=== PATIENT | female | born 1970 | race American Indian/Alaskan Native ===

== ENCOUNTER 2018-03-25 23:48 | Inpatient (IN) | payer MEDICAID, OTHER ==
[2018-03-26 00:13] VITALS: BMI 24.5
--- NOTE | 2018-03-26 00:41 | ED PDOC ---
Arrival/HPI - General Historian: Patient EM Caveat: Acuity of Condition - History of Present Illness Time/Duration: < week Symptom Onset: Gradual Symptom Course: Unchanged Quality: Pressure, Tightness Severity Level: 4 Activities at Onset: Rest Context: Home <Concha Landaverde - Last Filed: 03/26/18 21:38> <Tarik Perez - Last Filed: 03/27/18 00:35> - General Chief Complaint: Abdominal Pain Time Seen by Provider: 03/26/18 00:37 - History of Present Illness Narrative History of Present Illness (Text): 03/26/18 00:37 Pt is a 47 yr old female with past medical history of spinal stenosis, HTN, asthma, and Lupus who complains of intractable vomiting x 3 days. Pt reports that she has body aches including her abdomen and has not been able to eat or drink since the vomiting started. Says she started to notice blood streaks in the vomit this morning and reports weakness and fatigue. Denies chest pain, shortness of breath, back pain, diarrhea, recent travel, , or any other complaints (Concha Landaverde) Past Medical History - Provider Review Nursing Documentation Reviewed: Yes - Travel History Have you recently traveled outside [place] w/in the past 3 mons?: No - Cardiac Hx Cardiac Disorders: Yes Hx Hypertension: Yes - Pulmonary Hx Respiratory Disorders: Yes Hx Asthma: Yes - Neurological Hx Neurological Disorder: No - HEENT Hx HEENT Disorder: No - Renal Hx Renal Disorder: No - Endocrine/Metabolic Hx Endocrine Disorders: Yes Hx Systemic Lupus Erythematosus: Yes - Hematological/Oncological Hx Blood Disorders: No - Integumentary Hx Dermatological Disorder: No - Musculoskeletal/Rheumatological Hx Musculoskeletal Disorders: Yes Hx Arthritis: Yes Hx Spinal Stenosis: Yes - Gastrointestinal Hx Gastrointestinal Disorders: No - Genitourinary/Gynecological Hx Genitourinary Disorders: No - Psychiatric Hx Psychophysiologic Disorder: No Hx Substance Use: No - Anesthesia Hx Anesthesia: No <Concha Landaverde - Last Filed: 03/26/18 21:38> Family/Social History - Physician Review Nursing Documentation Reviewed: Yes Family/Social History: Unknown Family HX Smoking Status: Never Smoked Hx Alcohol Use: No Hx Substance Use: No <Concha Landaverde - Last Filed: 03/26/18 21:38> Family/Social History: No Known Family HX <Tarik Perez - Last Filed: 03/27/18 00:35> Allergies/Home Meds <Concha Landaverde - Last Filed: 03/26/18 21:38> <Tarik Perez - Last Filed: 03/27/18 00:35> Allergies/Adverse Reactions: Allergies penicillin G Allergy (Verified 03/26/18 00:19) SWELLING Home Medications: Home Meds Medication Instructions Recorded Confirmed No Known Home Med 03/26/18 03/26/18 Review of Systems - Review of Systems Systems not reviewed;Unavailable: Acuity of Condition Constitutional: Fatigue, Fevers Eyes: Normal ENT: Voice Changes Cardiovascular: Normal Gastrointestinal: Abdominal Pain, Nausea, Vomiting, Appetite Changes, Hematemesis Genitourinary Female: Normal Musculoskeletal: Back Pain, Neck Pain, Joint Swelling Skin: Normal Neurological: Headache Endocrine: Diaphoresis <SaimaConcha Aldo - Last Filed: 03/26/18 21:38> Physical Exam Vital Signs Reviewed: Yes Temperature: Afebrile Blood Pressure: Hypertensive Pulse: Regular Respiratory Rate: Normal Appearance: Positive for: Ill-Appearing, Uncomfortable. No: Non-Toxic Pain Distress: Moderate Mental Status: Positive for: Alert and Oriented X 3 - Systems Exam Head: Present: Atraumatic, Normocephalic Conjunctiva: Present: Normal Mouth: Present: Moist Mucous Membranes Nose (External): Present: Atraumatic Neck: Present: Normal Range of Motion Respiratory/Chest: Present: Clear to Auscultation, Good Air Exchange. No: Respiratory Distress, Accessory Muscle Use Cardiovascular: Present: Regular Rate and Rhythm, Normal S1, S2. No: Murmurs Abdomen: Present: Tenderness (RLQ and LLQ), Rebound, Guarding, McBurney's Point Tender, Rovsing's Sign Present. No: Distention, Normal Bowel Sounds, Peritoneal Signs Back: Present: Normal Inspection. No: CVA Tenderness Upper Extremity: Present: Normal Inspection, NORMAL PULSES, Capillary Refill < 2s. No: Cyanosis, Edema Lower Extremity: Present: Normal Inspection, NORMAL PULSES, Normal ROM, Neurovascularly Intact, Capillary Refill < 2 s. No: Edema, CALF TENDERNESS, Jeffrey's Sign Neurological: Present: GCS=15, CN II-XII Intact, Speech Normal Skin: Present: Warm, Dry, Normal Color, Diaphoretic, Hot, Cold, Pale. No: Rashes Psychiatric: Present: Alert, Oriented x 3, Normal Insight, Normal Concentration <Concha Landaverde - Last Filed: 03/26/18 21:38> Vital Signs Temp Pulse Resp BP Pulse Ox 03/26/18 02:35 98 F 77 18 145/76 100 03/26/18 00:12 97.7 F 79 16 151/92 H 100 Medical Decision Making - Lab Interpretations I have reviewed the lab results: Yes (Gap of 35) Interpretation: Abnormal lab values <Concha Landaverde - Last Filed: 03/26/18 21:38> <Tarik Perez - Last Filed: 03/27/18 00:35> ED Course and Treatment: 03/26/18 00:41 Impression Pt is a 47 yr old female with past medial history of spinal stenosis, and HTN who complains of intractable vomiting x 3 days. On exam, diaphoresis, acute abdominal pain,in RLQ and LUQ and umbilical area, pt uncooperative during exam due to discomfort Plan Labs, Abd and pelvis CT Fluids Zofran and Famotidine Assess and dispo Progress Note 03/26/18 03:06 CMP reveals gap, Cl of 10, no white ct noted Dr. Perez evaluated pt at bedside; ABG ordered w lactate and Bicarb 50 mEq STAT for Gap of 35; NS 1Litre bolus given CT results pending Pt was endorsed to Dr Perez (Concha Landaverde) 03/26/18 03:21 I discussed case with surgical technologist , who will come to evaluate the patient in Emergency department. CT scans still pending. 03/26/18 04:18 Notified and discussed case with medical appliance maker. notified and accepts patient to the hospitalist service. 03/26/18 05:34 EKG shows NSR at 68 BPM with first degree AV block. No acute changes. Interpreted by me. (Tarik Perez) - Lab Interpretations Lab Results: 03/26/18 01:09 03/26/18 01:09 Lab Results 03/26/18 02:50: pCO2 26 L, pO2 112.0 H, HCO3 10.2 L, ABG pH 7.20 L, ABG Total CO2 11.0 L, ABG O2 Saturation 98.9 H, ABG Base Excess -16.2 L, ABG Potassium 4.2 , Glucose 122 H, Lactate 0.7, FiO2 21.0, Sodium 137.0, Chloride 110.0 H, Arterial Blood Potassium 4.2 03/26/18 01:31: POC Glucose (mg/dL) 119 H 03/26/18 01:09: Amylase 136 H, Lipase 55 03/26/18 01:09: Sodium 146, Potassium 4.5, Chloride 106, Carbon Dioxide 10 L, Anion Gap 35 H, BUN 6 L, Creatinine 0.6 L, Est GFR ( Amer) > 60, Est GFR (Non-Af Amer) > 60, Random Glucose 138 H, Calcium 10.9 H, Total Bilirubin 0.6, AST 54 H, ALT 73 H, Alkaline Phosphatase 91, Total Protein 10.5 H, Albumin 5.8 H , Globulin 4.7, Albumin/Globulin Ratio 1.2 03/26/18 01:09: Urine Color Light red, Urine Appearance Sl cloudy, Urine pH 6.0 , Ur Specific Essie >= 1.030, Urine Protein 100 H, Urine Glucose (UA) Negative , Urine Ketones >=80, Urine Blood Large H, Urine Nitrate Negative, Urine Bilirubin Negative, Urine Urobilinogen 0.2, Ur Leukocyte Esterase Negative, Urine RBC 20 - 25, Urine WBC 0 - 2, Ur Epithelial Cells 0 - 2 03/26/18 01:09: WBC 6.4, RBC 4.48, Hgb 11.8 L, Hct 36.6, MCV 81.7, MCH 26.3, MCHC 32.2, RDW 18.4 H, Plt Count 629 H, MPV 8.8, Gran % 76.0 H, Lymph % (Auto) 16.7 L, [place] % (Auto) 6.5 H, Eos % (Auto) 0.2 L, Baso % (Auto) 0.6, Gran # 4.83 , Lymph # (Auto) 1.1 L, [place] # (Auto) 0.4, Eos # (Auto) 0.0, Baso # (Auto) 0.04 - RAD Interpretation Radiology Orders: 03/26/18 00:46 ABDOMEN & PELVIS [ABD & PELVIS IV CONTRAST ONLY] [CT] Stat - Medication Orders Current Medication Orders: Acetaminophen (Tylenol 325mg Tab) 650 mg PO Q4H PRN PRN Reason: Headache Amlodipine Besylate (Norvasc) 5 mg PO DAILY [facility] Last Admin: 03/26/18 11:57 Dose: 5 mg MAR Pulse and Blood Pressure Document 03/26/18 11:57 RDS (Rec: 03/26/18 11:57 RDS [id number]) Pulse Pulse Rate (60-90) 78 Blood Pressure Blood Pressure (100/60-150/90) 145/79 Clonidine HCl (Catapres) 0.1 mg PO Q6H PRN PRN Reason: Symptoms of alcohol withdrawl Heparin Sodium (Porcine) (Heparin) 5,000 units SC Q8 [place]DNEY PRN Reason: Protocol Last Admin: 03/26/18 21:17 Dose: 5,000 units Subcutaneous Administrations Document 03/26/18 21:17 SSE (Rec: 03/26/18 21:18 SSE [id number]) Injection Site MAR Injection Site Right Abdomen Charges for Administration # of Subcutaneous Administrations 1 Sodium Bicarbonate 50 meq/ (Sodium Chloride) 1,050 mls @ 100 mls/hr IV .[id number] [facility] Last Admin: 03/26/18 14:18 Dose: 100 mls/hr eMAR Start Stop Document 03/26/18 14:18 RDS (Rec: 03/26/18 14:18 RDS [id number]) Intravenous Solution Start Date 03/26/18 Start Time 14:18 Aztreonam (Azactam 1 Gm) 100 mls @ 100 mls/hr IVPB Q8 [facility] PRN Reason: Protocol Stop: 04/02/18 14:01 Last Admin: 03/26/18 21:18 Dose: 100 mls/hr eMAR Start Stop Document 03/26/18 21:18 SSE (Rec: 03/26/18 21:19 SSE [id number]) Intravenous Solution Start Date 03/26/18 Start Time 21:18 Metronidazole (Flagyl) 500 mg in 100 mls @ 100 mls/hr IVPB Q8 [facility] PRN Reason: Protocol Last Admin: 03/26/18 21:19 Dose: 100 mls/hr eMAR Start Stop Document 03/26/18 21:19 SSE (Rec: 03/26/18 21:19 SSE [id number]) Intravenous Solution Start Date 05/08/18 Start Time 21:19 Sodium Chloride (Sodium Chloride 0.9%) 1,000 mls @ 30 mls/hr IV .Q24H [facility] Last Admin: 03/26/18 23:21 Dose: 30 mls/hr eMAR Start Stop Document 03/26/18 23:21 SSE (Rec: 03/26/18 23:22 SSE [id number]) Intravenous Solution Start Date 03/26/18 Start Time 23:22 Lorazepam (Ativan) 2 mg IVP Q3H PRN; Protocol PRN Reason: Symptoms of alcohol withdrawl Lorazepam (Ativan) 1 mg IVP Q6H [place]ODNEY PRN Reason: Protocol Last Admin: 03/26/18 23:12 Dose: 1 mg IVP Administration Document 03/26/18 23:12 SSE (Rec: 03/26/18 23:13 SSE [place] [id number]) Charges for Administration # of IVP Administrations 1 Behavioural Document 03/26/18 23:12 SSE (Rec: 03/26/18 23:13 SSE [place] [id number]) Maintenance Maintenance Dose Yes Nonmedicinal Nonmedicinal Interventions Redirect Ondansetron HCl (Zofran Inj) 4 mg IVP Q4H PRN PRN Reason: Nausea/Vomiting Pantoprazole Sodium (Protonix Inj) 40 mg IVP Q12 [facility] Last Admin: 03/26/18 21:18 Dose: 40 mg IVP Administration Document 03/26/18 21:18 SSE (Rec: 03/26/18 21:18 SSE [place] [id number]) Charges for Administration # of IVP Administrations 1 Discontinued Medications Acetaminophen (Tylenol 325mg Tab) 650 mg PO ONCE ONE Stop: 03/26/18 10:54 Last Admin: 03/26/18 11:58 Dose: 650 mg [facility] Pain/Vitals Document 03/26/18 11:58 RDS (Rec: 03/26/18 11:58 RDS [id number]) Presence of Pain Presence of Pain Yes Pain Scale Used Pain Scale Used Numeric Location Pain Location Body Manager Security Intensity 3 Re-Assess: GOLDY Pain/Vitals Document 03/26/18 12:58 RDS (Rec: 03/26/18 14:38 RDS [id number]) Pain Reassessment Is This A Pain ReAssessment? Yes Sleep Is patient sleeping during reassessment? Yes Sodium Chloride (Sodium Chloride 0.9%) 1,000 mls @ 999 mls/hr IV .Q1H1M STA Stop: 03/26/18 01:44 Last Admin: 03/26/18 01:20 Dose: 999 mls/hr eMAR Start Stop Document 03/26/18 01:20 LA (Rec: 03/26/18 01:21 LA [id number]) Intravenous Solution Start Date 03/26/18 Start Time 01:20 End Date 03/26/18 End time 02:21 Total Infusion Time 61 Famotidine (Pepcid 20mg/50ml Premix) 20 mg in 50 mls @ 100 mls/hr IVPB STAT STA Stop: 03/26/18 01:18 Last Admin: 03/26/18 01:17 Dose: 100 mls/hr eMAR Start Stop Document 03/26/18 01:17 LA (Rec: 03/26/18 01:18 LA [id number]) Intravenous Solution Start Date 03/26/18 Start Time 01:17 End Date 03/26/18 End time 01:47 Total Infusion Time 30 Sodium Chloride (Sodium Chloride 0.9%) 1,000 mls @ 999 mls/hr IV .Q1H1M STA Stop: 03/26/18 03:35 Last Admin: 03/26/18 05:57 Dose: Aztreonam (Azactam 1 Gm) 100 mls @ 100 mls/hr IVPB STAT STA PRN Reason: Protocol Stop: 03/26/18 05:15 Last Admin: 03/26/18 05:53 Dose: 100 mls/hr eMAR Start Stop Document 03/26/18 05:53 GC (Rec: 03/26/18 05:53 GC [id number]) Intravenous Solution Start Date 03/26/18 Start Time 05:53 Sodium Chloride (Sodium Chloride 0.9%) 1,000 mls @ 999 mls/hr IV .Q1H1M ONE Stop: 03/26/18 06:30 Last Admin: 03/26/18 05:57 Dose: Sodium Chloride (Sodium Chloride 0.9%) 1,000 mls @ 150 mls/hr IV .Q6H40M [facility] Last Admin: 03/26/18 18:35 Dose: Lorazepam (Ativan) 0.5 mg IVP Q6H PRN; Protocol PRN Reason: Seizure activity Lorazepam (Ativan) 0.5 mg IVP Q6H PRN; Protocol PRN Reason: Symptoms of alcohol withdrawl Last Admin: 03/26/18 10:13 Dose: 0.5 mg IVP Administration Document 03/26/18 10:13 RDS (Rec: 03/26/18 10:13 RDS [id number]) Charges for Administration # of IVP Administrations 1 Behavioural Document 03/26/18 10:13 RDS (Rec: 03/26/18 10:13 [place] [id number]) Maintenance Maintenance Dose No Nonmedicinal Nonmedicinal Interventions Therapeutic Communication Behavior Behavior for Medication: Anxiety Re-Assess: Reassess Psych Meds Document 03/26/18 10:43 RDS (Rec: 03/26/18 11:48 RDS [place] [id number]) Reassess Psych Med Effective Magnesium Oxide (Mag-Ox) 400 mg PO ONCE ONE Stop: 03/26/18 09:11 Last Admin: 03/26/18 09:29 Dose: 400 mg Ondansetron HCl (Zofran Inj) 4 mg IVP STAT STA Stop: 03/26/18 00:44 Last Admin: 03/26/18 01:18 Dose: 4 mg IVP Administration Document 03/26/18 01:18 LA (Rec: 03/26/18 01:18 LA [id number]) Charges for Administration # of IVP Administrations 1 Ondansetron HCl (Zofran Inj) 4 mg IVP Q6H PRN PRN Reason: Nausea/Vomiting Last Admin: 03/26/18 07:31 Dose: 4 mg IVP Administration Document 03/26/18 07:31 GC (Rec: 03/26/18 07:32 GC [place] [id number]) Charges for Administration # of IVP Administrations 1 Sodium Bicarbonate (Sodium Bicarbonate 8.4% (50 Meq) Syringe) 50 meq IVP ONCE ONE Stop: 03/26/18 03:18 Last Admin: 03/26/18 04:20 Dose: 50 meq IVP Administration Document 03/26/18 04:20 IT (Rec: 03/26/18 04:20 IT [id number]) Charges for Administration # of IVP Administrations 1 - PA / DIRECTOR MUSIC / Resident Statement / has reviewed & agrees with the documentation as recorded. / has examined the patient and agrees with the treatment plan. <Tarik Perez - Last Filed: 03/27/18 00:35> Disposition/Present on Arrival - Present on Arrival Any Indicators Present on Arrival: No History of DVT/PE: No History of Uncontrolled Diabetes: No Urinary Catheter: No History of Decub. Ulcer: No History Surgical Site Infection Following: None - Disposition Have Diagnosis and Disposition been Completed?: Yes <Concha Landaverde - Last Filed: 03/26/18 21:38> - Present on Arrival Any Indicators Present on Arrival: No History of DVT/PE: No History of Uncontrolled Diabetes: No Urinary Catheter: No History of Decub. Ulcer: No History Surgical Site Infection Following: None - Disposition Have Diagnosis and Disposition been Completed?: Yes Disposition Time: 04:24 Patient Plan: Admission <Tarik Perez - Last Filed: 03/27/18 00:35> - Disposition Diagnosis: Intractable vomiting, Enteritis, Colitis, Metabolic acidosis Disposition: HOSPITALIZED Patient Problems: Current Active Problems Problem Status Onset Colitis Acute Enteritis Acute Intractable vomiting Acute Metabolic acidosis Acute Condition: STABLE
[2018-03-26] MEDS ORDERED: Sodium Chloride 0.9% 1,000 ML IV STA ×2 (00:44→02:35)
[2018-03-26] MEDS ORDERED: Famotidine 20mg/50ml 20 MG/50 ML BAG IVPB STA (00:49)
[2018-03-26] MEDS ORDERED: Iohexol 350 MG/100 ML VIAL ONE (01:04)
[2018-03-26 01:26] LABS: BASO # 0.04 K/mm3 (0.0-2.0); BASO % 0.6 % (0.0-3.0); EOS % 0.2 % (1.5-5.0); GRAN # 4.83 (1.4-6.5); HEMOGLOBIN 11.8 g/dL (12.0-16.0); LYMPH # 1.1 (1.2-3.4); LYMPH % 16.7 % (22.0-35.0); MEAN CELL VOLUME 81.7 fl (80.0-105.0); MEAN CORPUSCULAR HEMOGLOBIN 26.3 pg (25.0-35.0); MEAN CORPUSCULAR HGB CONC 32.2 g/dl (31.0-37.0); MEAN PLATELET VOLUME 8.8 fl (7.0-11.0); MONO # 0.4 (0.1-0.6); MONO % 6.5 % (1.0-6.0); RBC 4.48 10^6/uL (3.5-6.1); RED CELL DISTRIBUTION WIDTH 18.4 % (11.5-14.5); URINE APPEARANCE SL CLOUDY (CLEAR); URINE BILIRUBIN NEGATIVE (NEGATIVE); URINE BLOOD LARGE (NEGATIVE); URINE COLOR LIGHT RED (YELLOW); URINE GLUCOSE (UA) NEGATIVE (NEGATIVE); URINE LEUKOCYTE ESTERASE NEGATIVE Leu/uL (NEGATIVE); URINE PROTEIN 100 mg/dL (<30 mg/dL); URINE UROBILINOGEN 0.2 E.U./dL (<1 E.U./dL); WHITE BLOOD COUNT 6.4 10^3/ul (4.5-11.0)
[2018-03-26 01:33] LABS: ALB/GLOB RATIO 1.2 (1.1-1.8); ALBUMIN 5.8 g/dL (3.0-4.8); ALT/SGPT 73 U/L (7-56); AST/SGOT 54 U/L (14-36); BLOOD UREA NITROGEN 6 mg/dL (7-21); CALCIUM 10.9 mg/dL (8.4-10.5); GFR AFRICAN-AMERICAN > 60; GFR NON-AFRICAN AMERICAN > 60
[2018-03-26 01:38] LABS: URINE EPITHELIAL CELLS 0 - 2 /hpf (0-5); URINE RBC 20 - 25 /hpf (0-2); URINE WBC 0 - 2 /hpf (0-6)
[2018-03-26 02:57] LABS: ARTERIAL BLOOD GAS HCO3 10.2 mmol/L (21-28); ARTERIAL BLOOD GAS O2 SAT 98.9 % (95-98); ARTERIAL BLOOD GAS PCO2 26 mm/Hg (35-45)
[2018-03-26] MEDS ORDERED: Sodium Bicarbonate (8.4%) 50 Meq Syringe IVP ONE (03:17)
[2018-03-26] MEDS ORDERED: Aztreonam 1 Gm in NS 100mL 100 ML IVPB STA (04:16)
[2018-03-26 04:25] LABS: AMYLASE 136 U/L (35-125); LIPASE 55 U/L (23-300)
--- NOTE | 2018-03-26 05:19 | CP.PCM.HP ---
<Reid Jane - Last Filed: 03/26/18 05:58> History of Present Illness - History of Present Illness History of Present Illness: CC: Abdominal Pain HPI: Patient is a 47 year old female with past medical history of spinal stenosis, asthma, HTN who presents with intractable nausea and vomiting for the past three days. Patient indicates poor oral intake and inability to tolerate food or liquids during this time. Patient reports prior to onset of symptoms she consumed chicken at a BBQ. She denies knowing if anyone else from meal is sick. She reports nausea and vomiting with some blood streaks present but denies juan hemeatemesis or clots in emesis. Patient reports diarrhea for the past 48 hours, indicateing soft stool with 5+ episodes each day. She reports feeling clammy, chills, sweats. Patient denies fever, chest pain, back pain, diarrhea, recent travel or sick contacts. ED course: VBG showing metabolic acidosis, one amp of bicarbonate, IV antibiotics, Abominal CT showing few prominent loops of small bowel with mild thickening of francisco enteritis vs. colitis, zofran and 2 Liters of fluids PMH: Spinal stenosis, asthma, HTN, Lupus PSH: Hernia repair x3 FMH: Cancer, Leukemia SOCHX: Tobacco: 0.5 PPD, ETOH: Social <10 beers a week, ID: [id number] denies IVDA ALL: PCN - hives MEDS: - Plaquenil - Percocet - Naproxen - Flexeril - Norvasc PMD: Dr. Bradley ([place]) Pharmacy: [facility] Present on Admission - Present on Admission Any Indicators Present on Admission: No Review of Systems - Review of Systems All systems: reviewed and no additional remarkable complaints except (as mentioned in HPI) Past Patient History - Past Social History Smoking Status: Current Some Days Smoker Alcohol: Social Drugs: Cannabis - CARDIAC Hx Cardiac Disorders: Yes Hx Hypertension: Yes - PULMONARY Hx Respiratory Disorders: Yes Hx Asthma: Yes - NEUROLOGICAL Hx Neurological Disorder: No - HEENT Hx HEENT Problems: No - RENAL Hx Chronic Kidney Disease: No - ENDOCRINE/METABOLIC Hx Endocrine Disorders: Yes Hx Systemic Lupus Erythematosus: Yes - HEMATOLOGICAL/ONCOLOGICAL Hx Blood Disorders: No - INTEGUMENTARY Hx Dermatological Problems: No - MUSCULOSKELETAL/RHEUMATOLOGICAL Hx Musculoskeletal Disorders: Yes Hx Arthritis: Yes Hx Spinal Stenosis: Yes - GASTROINTESTINAL Hx Gastrointestinal Disorders: No - GENITOURINARY/GYNECOLOGICAL Hx Genitourinary Disorders: No - PSYCHIATRIC Hx Psychophysiologic Disorder: No Hx Substance Use: No - SURGICAL HISTORY Hx Surgeries: Yes Hx Herniorrhaphy: Yes - ANESTHESIA Hx Anesthesia: No Meds Allergies/Adverse Reactions: Allergies Allergy/AdvReac Type Severity Reaction Status Date / Time penicillin G Allergy SWELLING Verified 03/26/18 00:19 Physical Exam - Constitutional Appears: In Acute Distress - Head Exam Head Exam: ATRAUMATIC, NORMAL INSPECTION, NORMOCEPHALIC Additional comments: Brightly dyed red hair that is actively staining bed sheets - Eye Exam Eye Exam: EOMI, PERRL Additional comments: conjunctival pallor - ENT Exam ENT Exam: Mucous Membranes Dry - Respiratory Exam Respiratory Exam: Clear to Auscultation Bilateral, NORMAL BREATHING PATTERN. absent: Wheezes, Stridor - Cardiovascular Exam Cardiovascular Exam: REGULAR RHYTHM, +S1, +S2 - GI/Abdominal Exam GI & Abdominal Exam: Diminished Bowel Sounds, Distended, Soft, Tenderness (RLQ, mid epigastric ). absent: Firm, Guarding, Rigid - Extremities Exam Extremities exam: Positive for: normal capillary refill. Negative for: joint swelling, pedal edema - Neurological Exam Neurological exam: Alert, Normal Gait, Oriented x3 - Psychiatric Exam Psychiatric exam: Normal Affect, Normal Mood - Skin Skin Exam: Dry, Warm Results - Vital Signs Recent Vital Signs: Last Vital Signs Temp 98 F 03/26/18 02:35 Pulse 77 03/26/18 02:35 Resp 18 03/26/18 02:35 BP 145/76 03/26/18 02:35 Pulse Ox 100 03/26/18 02:35 - Labs Result Diagrams: 03/26/18 01:09 03/26/18 01:09 Labs: Laboratory Results - last 24 hr 03/26/18 03/26/18 03/26/18 01:09 01:09 01:09 WBC 6.4 RBC 4.48 Hgb 11.8 L Hct 36.6 MCV 81.7 MCH 26.3 MCHC 32.2 RDW 18.4 H Plt Count 629 H MPV 8.8 Gran % 76.0 H Lymph % (Auto) 16.7 L [place] % (Auto) 6.5 H Eos % (Auto) 0.2 L Baso % (Auto) 0.6 Gran # 4.83 Lymph # (Auto) 1.1 L [place] # (Auto) 0.4 Eos # (Auto) 0.0 Baso # (Auto) 0.04 pCO2 pO2 HCO3 ABG pH ABG Total CO2 ABG O2 Saturation ABG Base Excess ABG Potassium Glucose Lactate FiO2 Sodium 146 Potassium 4.5 Chloride 106 Carbon Dioxide 10 L Anion Gap 35 H BUN 6 L Creatinine 0.6 L Est GFR ( Amer) > 60 Est GFR (Non-Af Amer) > 60 Random Glucose 138 H Calcium 10.9 H Total Bilirubin 0.6 AST 54 H ALT 73 H Alkaline Phosphatase 91 Total Protein 10.5 H Albumin 5.8 H Globulin 4.7 Albumin/Globulin Ratio 1.2 Amylase Lipase Arterial Blood Potassium Urine Color Light red Urine Appearance Sl cloudy Urine pH 6.0 Ur Specific [place] >= 1.030 Urine Protein 100 H Urine Glucose (UA) Negative Urine Ketones >=80 Urine Blood Large H Urine Nitrate Negative Urine Bilirubin Negative Urine Urobilinogen 0.2 Ur Leukocyte Esterase Negative Urine RBC 20 - 25 Urine WBC 0 - 2 Ur Epithelial Cells 0 - 2 03/26/18 03/26/18 01:09 02:50 WBC RBC Hgb Hct MCV MCH MCHC RDW Plt Count MPV Gran % Lymph % (Auto) [place] % (Auto) Eos % (Auto) Baso % (Auto) Gran # Lymph # (Auto) [place] # (Auto) Eos # (Auto) Baso # (Auto) pCO2 26 L pO2 112.0 H HCO3 10.2 L ABG pH 7.20 L ABG Total CO2 11.0 L ABG O2 Saturation 98.9 H ABG Base Excess -16.2 L ABG Potassium 4.2 Glucose 122 H Lactate 0.7 FiO2 21.0 Sodium 137.0 Potassium Chloride 110.0 H Carbon Dioxide Anion Gap BUN Creatinine Est GFR ( Amer) Est GFR (Non-Af Amer) Random Glucose Calcium Total Bilirubin AST ALT Alkaline Phosphatase Total Protein Albumin Globulin Albumin/Globulin Ratio Amylase 136 H Lipase 55 Arterial Blood Potassium 4.2 Urine Color Urine Appearance Urine pH Ur Specific [place] Urine Protein Urine Glucose (UA) Urine Ketones Urine Blood Urine Nitrate Urine Bilirubin Urine Urobilinogen Ur Leukocyte Esterase Urine RBC Urine WBC Ur Epithelial Cells Assessment & Plan - Assessment and Plan (Free Text) Assessment: 47 year old female with past medical history of spinal stenosis, asthma, HTN who presents with intractable nausea and vomiting for the past three days. Abdominal CT shows enteritis v. colitis and metabolic acidosis with elevated anion gap. Patient likely to have gastroenteritis secondary to metabolic acidosis. Patient to be admitted for further management and evaluation Plan: AG metabolic Acidosis - Intractable n/v past 3 days, Etiology: Dehydration, enteritis, gastroenteritits, colitis, other - Check Aceteminophen, ETOH, salicylate, UDS - Repeat CMP, CBC in AM - 2 Liters of fluid give in ED, plan for 3rd bolus, start IVF 150mL/Hr after third bolus - 1 amp Sodium Bicarb given - Monitor Gastroenteritis vs. Colitis - Abd CT showing: Few prominent loops of small bowel with mildly thickened francisco in the left abdomen, nonspecific but seen with enteritis, mild thickening of the wall of the colon most likely secondary to tunderdistention, superimposed colitis is not entirely excluded, uterine fibroid measuring 3.3 x 2.8 x 2.4 cm - Aztreonam, Flagyl - Zofran for nausea - NPO HTN - stable - consider restarting Norvasc 2.5mg from home DVT ppx: Heparin GI ppx: Protonix Case and plan discussed with attending, Dr. Fernandez - Date & Time Date: 03/26/18 Time: 05:35 <Garrett Fernandez - Last Filed: 03/26/18 06:54> Results - Vital Signs Recent Vital Signs: Last Vital Signs Temp 98.7 F 03/26/18 06:01 Pulse 70 03/26/18 06:01 Resp 18 03/26/18 06:01 BP 152/84 H 03/26/18 06:01 Pulse Ox 100 03/26/18 02:35 - Labs Result Diagrams: 03/26/18 01:09 03/26/18 01:09 Attending/Attestation - Attestation I have personally seen and examined this patient.: Yes I have fully participated in the care of the patient.: Yes I have reviewed all pertinent clinical information: Yes Notes (Text): 03/26/18 06:52 I agree with the above mentioned note and exam by the resident with the addition /exception of the followin47 y/o female with htn, asthma, SLE presented to the ED with the c/o intractable nausea/vomiting x 3 days along with loose watery bowel movements after eating BBQ chicken. Patient states having multiple episodes of NBNB vomitus followed by vomiting up saliva and clear liquid. Found to have an increased AG metabolic acidosis; treated with 3L of IVF bolus' + 1AMP Sodium Bicarb along with a bicarb drip started in the ED. Will repeat chemistry to evaluate whether AG is the same or decreasing; will also rule out other causes with tylenol/etoh/salicylate levels.
[2018-03-26] MEDS ORDERED: Sodium Chloride 0.9% 1,000 ML IV ONE (05:30)
[2018-03-26] MEDS: Sodium Chloride 0.9% 1,000 ML IV SCH ×4 (05:58→18:35)
[2018-03-26] MEDS: metroNIDAZOLE IV 500 mg/100 ml 500 MG/100 ML BAG IVPB SCH ×3 (07:59→21:19)
[2018-03-26] MEDS ORDERED: metroNIDAZOLE IV 250mg/50 ml 250 MG/50 ML BAG IVPB SCH (08:00)
[2018-03-26 08:31] LABS: BASO # 0.01 K/mm3 (0.0-2.0); BASO % 0.2 % (0.0-3.0); GRAN # 5.71 (1.4-6.5); GRAN % 86.1 % (50.0-68.0); HEMOGLOBIN 9.7 g/dL (12.0-16.0); LYMPH # 0.7 (1.2-3.4); LYMPH % 10.1 % (22.0-35.0); MEAN CELL VOLUME 81.2 fl (80.0-105.0); MEAN CORPUSCULAR HEMOGLOBIN 25.7 pg (25.0-35.0); MEAN CORPUSCULAR HGB CONC 31.7 g/dl (31.0-37.0); MEAN PLATELET VOLUME 8.7 fl (7.0-11.0); MONO # 0.2 (0.1-0.6); MONO % 3.6 % (1.0-6.0); RBC 3.77 10^6/uL (3.5-6.1); RED CELL DISTRIBUTION WIDTH 18.2 % (11.5-14.5); WHITE BLOOD COUNT 6.6 10^3/ul (4.5-11.0)
[2018-03-26 08:43] LABS: ACETAMINOPHEN < 10.0 ug/ml (10.0-20.0); SALICYLATE < 1 mg/dL (2.0-20.0)
[2018-03-26 08:45] LABS: ALB/GLOB RATIO 1.6 (1.1-1.8); ALT/SGPT 53 U/L (7-56); AST/SGOT 44 U/L (14-36); BLOOD UREA NITROGEN 4 mg/dL (7-21); CALCIUM 9.1 mg/dL (8.4-10.5); GFR AFRICAN-AMERICAN > 60; GFR NON-AFRICAN AMERICAN > 60
[2018-03-26] MEDS ORDERED: Magnesium Oxide 400 mg Tab UD PO ONE (09:10)
--- NOTE | 2018-03-26 09:15 | CT ---
PROCEDURE: CT scan abdomen pelvis dated 03/26/2018 HISTORY: Right lower quadrant pain COMPARISON: No prior study available for comparison TECHNIQUE: Contrast dose: 96 cc Omnipaque 350 contrast material. Radiation dose: Total exam DLP = 247.48 mGy-cm. This CT exam was performed using one or more of the following dose reduction techniques: Automated exposure control, adjustment of the mA and/or kV according to patient size, and/or use of iterative reconstruction technique. . FINDINGS: LOWER THORAX: Lung bases are clear. No infiltrate effusion or basilar pneumothorax. Small to medium-sized hiatal hernia. Heart is enlarged. LIVER: Liver exhibits normal size. Moderate fatty hepatic infiltration. . There is a tiny approximately 5.3 mm elliptical shaped focus low attenuation left lobe liver that is too small to characterize though could represent a tiny hemangioma GALLBLADDER AND BILE DUCTS: Gallbladder is appears incompletely distended. . No evidence of intraluminal gallbladder calculi. PANCREAS: Unremarkable. No gross lesion or ductal dilatation. SPLEEN: Unremarkable. ADRENALS: No adrenal lesions. KIDNEYS AND URETERS: Kidneys demonstrate symmetric nephrograms. No evidence of nephrolithiasis or hydronephrosis. . There is a tiny approximately 2.5 mm elliptical shaped low-attenuation focus anterolateral cortex mid to lower pole right kidney that is too small to characterize however could represent tiny cyst. VASCULATURE: Unremarkable. No abdominal aortic the aneurysm. BOWEL: Evaluation of the bowel is limited due to the lack of oral contrast material. The stomach is incompletely distended CTS stomach is incompletely distended. Visualized loops of small bowel exhibit relatively normal contour and caliber. No evidence of acute mechanical small bowel obstruction. There are several on minimally prominent thickened loops of small bowel slightly thickened loops of small bowel in the left abdomen ; rule out enteritis. Most of the cecum, ascending and transverse colon is collapsed which may in part account for slight wall thickening however the possibility of a submucosal edema due to of colitis or submucosal fat deposition at to be excluded occluded. Clinical correlation recommended. APPENDIX: Normal-appearing appendix best seen on coronal image number [id number]. No periappendiceal inflammatory changes. The disease PERITONEUM: Unremarkable. No free fluid. No free air. LYMPH NODES: Unremarkable. No enlarged lymph nodes. BLADDER: Urinary bladder is incompletely distended which in part accounts for slight thick-walled appearance. Correlation with urinalysis recommended to exclude the possibility of a cystitis. REPRODUCTIVE: There is an apparent of posterior uterine body fibroid 2.7 x 2.7 cm . Follow-up pelvic ultrasound could confirm. BONES: The osseous structures appear grossly intact. OTHER FINDINGS: None. IMPRESSION: There are a few prominent mildly thick-walled loops the cecum of small bowel left abdomen ; rule out enteritis. . The cecum ascending and transverse colon are collapsed which may in part account for slight apparent wall thickening however submucosal edema due to a colitis or submucosal fat deposition due to chronic inflammation not excluded. Clinical correlation recommended. Uterine fibroid. Fatty hepatic infiltration. There appears to be a small 5.3 mm low-attenuation focus left lobe liver too small to characterize. There is also a tiny 2.5 mm focus low attenuation right kidney that could represent cyst. Followup study at interval could be performed to assess stability. See above discussion for additional details findings and recommendations.
--- NOTE | 2018-03-26 10:32 | CARD ---
APPROVED REPORT EKG Measurement Heart [id number] HI [id number] [id number] <Conclusion> Sinus rhythm with 1st degree AV block Peaked T waves V 4 - 6
--- NOTE | 2018-03-26 11:31 | CP.PCM.PN ---
<Chantel Henley - Last Filed: 03/26/18 11:28> Subjective - Date & Time of Evaluation Date of Evaluation: 03/26/18 Time of Evaluation: 11:28 - Subjective Subjective: IM progress note for Dr. Mays-Chantel Henley, PGY-1 Pt S & E at bedside at 0740 and again at approximately 11am Pt reports emesis (bilious), nausea, and headache at later visit. Also reports RLQ abdominal pain, epigastric abdominal pain and L flank pain, dysuria. Pt reports having similar episode a few years ago- does not remember what medications helped at that time. Objective - Vital Signs/Intake and Output Vital Signs (last 24 hours): Temp Pulse Resp BP Pulse Ox 98.7 F 76 18 152/84 H 99 03/26/18 06:01 03/26/18 10:00 03/26/18 06:01 03/26/18 06:01 03/26/18 05:20 - Medications Medications: Current Medications Amlodipine Besylate (Norvasc) 5 mg PO DAILY [facility] Clonidine HCl (Catapres) 0.1 mg PO Q6H PRN PRN Reason: Symptoms of alcohol withdrawl Heparin Sodium (Porcine) (Heparin) 5,000 units SC Q8 [facility] PRN Reason: Protocol Last Admin: 03/26/18 05:58 Dose: Not Given Sodium Bicarbonate 50 meq/ (Sodium Chloride) 1,050 mls @ 100 mls/hr IV .[id number] [facility] Last Admin: 03/26/18 03:17 Dose: 100 mls/hr Sodium Chloride (Sodium Chloride 0.9%) 1,000 mls @ 150 mls/hr IV .[id number] [facility] Last Admin: 03/26/18 05:58 Dose: 150 mls/hr Aztreonam (Azactam 1 Gm) 100 mls @ 100 mls/hr IVPB Q8 [facility] PRN Reason: Protocol Stop: 04/02/18 14:01 Metronidazole (Flagyl) 500 mg in 100 mls @ 100 mls/hr IVPB Q8 [facility] PRN Reason: Protocol Last Admin: 03/26/18 07:59 Dose: 100 mls/hr Lorazepam (Ativan) 2 mg IVP Q3H PRN; Protocol PRN Reason: Symptoms of alcohol withdrawl Lorazepam (Ativan) 1 mg IVP Q6H [facility] PRN Reason: Protocol Ondansetron HCl (Zofran Inj) 4 mg IVP Q4H PRN PRN Reason: Nausea/Vomiting Pantoprazole Sodium (Protonix Inj) 40 mg IVP Q12 [facility] Last Admin: 03/26/18 09:29 Dose: 40 mg - Labs Labs: 03/26/18 08:00 03/26/18 08:00 - Constitutional Appears: Non-toxic, No Acute Distress - Head Exam Head Exam: ATRAUMATIC, NORMAL INSPECTION, NORMOCEPHALIC - Eye Exam Eye Exam: EOMI, Normal appearance - ENT Exam ENT Exam: Mucous Membranes Moist, Normal Exam - Neck Exam Neck Exam: Full ROM, Normal Inspection - Respiratory Exam Respiratory Exam: Clear to Ausculation Bilateral, NORMAL BREATHING PATTERN. absent: Rales, Rhonchi, Wheezes, Respiratory Distress - Cardiovascular Exam Cardiovascular Exam: REGULAR RHYTHM, +S1, +S2 - GI/Abdominal Exam GI & Abdominal Exam: Soft, Tenderness (mild, RLQ, epigastric areas). absent: Distended, Firm, Guarding, Rigid - Extremities Exam Extremities Exam: Normal Inspection - Neurological Exam Neurological Exam: Alert, Awake, CN II-XII Intact, Oriented x3 - Psychiatric Exam Psychiatric exam: Normal Affect, Normal Mood - Skin Skin Exam: Dry, Intact, Normal Color, Warm Assessment and Plan - Assessment and Plan (Free Text) Assessment: 47F w/PMH sig for spinal stenosis, asthma, HTN, SLE admitted for intractable nausea and vomiting x 3 days resulting in high anion gap metabolic acidosis Plan: AG metabolic Acidosis pH 7.2 upon admission Started on bicarb drip Acetaminophen <10 -WNL ETOH <10 - WNL Salicylate <1 - WNL FU UDS FU BMP at 2pm FU A1c Montior Gastroenteritis vs. Colitis vs withdrawal Ab CT w/Few prominent loops of small bowel with mildly thickened francisco in left abdomen, nonspecific but seen with enteritis, mild thickening of the wall of the colon most likely secondary to under distention, superimposed colitis is not entirely excluded, uterine fibroid measuring 3.3 x 2.8 x 2.4 cm Cont Aztreonam Cont Flagyl Zofran PRN NPO w/ice chips & Meds NS @150 FU UDS Ativan scheduled & PRN CIWA protocol Seizure precautions Clonidine PRN ID following- FU HIV, blood cxr, stool cx, fecal leukocytes Headache Tylenol Monitor HTN BP 152/84 Monitor Cont home med- Norvasc 5mg daily History of lupus Cont plaquenil Hx gastritis Avoid NSAIDS GI/DVT ppx Heparin Protonix DW attending Lory, PGY-1 <Sandra Mays - Last Filed: 03/26/18 12:21> Objective - Vital Signs/Intake and Output Vital Signs (last 24 hours): Temp Pulse Resp BP Pulse Ox 98.7 F 78 18 145/79 99 03/26/18 06:01 03/26/18 11:57 03/26/18 06:01 03/26/18 11:57 03/26/18 05:20 - Medications Medications: Current Medications Amlodipine Besylate (Norvasc) 5 mg PO DAILY [facility] Last Admin: 03/26/18 11:57 Dose: 5 mg Clonidine HCl (Catapres) 0.1 mg PO Q6H PRN PRN Reason: Symptoms of alcohol withdrawl Heparin Sodium (Porcine) (Heparin) 5,000 units SC Q8 [facility] PRN Reason: Protocol Last Admin: 03/26/18 05:58 Dose: Not Given Sodium Bicarbonate 50 meq/ (Sodium Chloride) 1,050 mls @ 100 mls/hr IV .[id number] [facility] Last Admin: 03/26/18 03:17 Dose: 100 mls/hr Sodium Chloride (Sodium Chloride 0.9%) 1,000 mls @ 150 mls/hr IV .Q6H40M [facility] Last Admin: 03/26/18 05:58 Dose: 150 mls/hr Aztreonam (Azactam 1 Gm) 100 mls @ 100 mls/hr IVPB Q8 [facility] PRN Reason: Protocol Stop: 04/02/18 14:01 Metronidazole (Flagyl) 500 mg in 100 mls @ 100 mls/hr IVPB Q8 [facility] PRN Reason: Protocol Last Admin: 03/26/18 07:59 Dose: 100 mls/hr Lorazepam (Ativan) 2 mg IVP Q3H PRN; Protocol PRN Reason: Symptoms of alcohol withdrawl Lorazepam (Ativan) 1 mg IVP Q6H [facility] PRN Reason: Protocol Last Admin: 03/26/18 11:58 Dose: 1 mg Ondansetron HCl (Zofran Inj) 4 mg IVP Q4H PRN PRN Reason: Nausea/Vomiting Pantoprazole Sodium (Protonix Inj) 40 mg IVP Q12 [facility] Last Admin: 03/26/18 09:29 Dose: 40 mg - Labs Labs: 03/26/18 08:00 03/26/18 08:00 Attending/Attestation - Attestation I have personally seen and examined this patient.: Yes I have fully participated in the care of the patient.: Yes I have reviewed all pertinent clinical information, including history, physical exam and plan: Yes Notes (Text): 03/26/18 12:16 47 year old female with past medical history of asthma, hypertension and SLE who presented with nausea and vomiting x 3 days. She was found to have anion gap acidosis and possible enteritis on CT. She is currently on bicarb. Will obtain serial labs. Acetaminophen, alcohol and salicylate level have been negative. Urine drug screen is pending. She admits to drinking alcohol few days prior. She is started on ativan for possible early withdrawal symptoms. Continue with NPO, IVF, and antiemetics. Advance diet as symptoms improve. ID evaluation was requested and patient is currently on flagyl. Sandra Mays MD Hospitalist.
--- NOTE | 2018-03-26 12:57 | CP.PCM.CON ---
History of Present Illness - History of Present Illness History of Present Illness: 47 year old female with PMH of spinal stenosis, systemic lupus erythematosus, HTN, asthma [place] [facility] [place] of nausea and vomiting for about 2 days, ever since she ate some chicken at a barbeque cookout. She denies hematemesis. She had episodes of loose bowel movement and abdominal discomfort, but denies hematochezia or melena. She denies fever or chills, no cough or rhinorrhea, no shortness of breath, no sore throat, no chest pain, no headache or dizziness. In the ED, CT scan of the abdomen and pelvis showed enteritis, cannot rule out colitis. Infectious Diseases consult is requested to further evaluate and manage. Review of Systems - Review of Systems All systems: reviewed and no additional remarkable complaints except (as per HPI ) Past Patient History - Past Social History Smoking Status: Never Smoked - CARDIAC Hx Cardiac Disorders: Yes Hx Hypertension: Yes - PULMONARY Hx Respiratory Disorders: Yes Hx Asthma: Yes - NEUROLOGICAL Hx Neurological Disorder: No - HEENT Hx HEENT Problems: No - RENAL Hx Chronic Kidney Disease: No - ENDOCRINE/METABOLIC Hx Endocrine Disorders: Yes Hx Systemic Lupus Erythematosus: Yes - HEMATOLOGICAL/ONCOLOGICAL Hx Blood Disorders: No - INTEGUMENTARY Hx Dermatological Problems: No - MUSCULOSKELETAL/RHEUMATOLOGICAL Hx Musculoskeletal Disorders: Yes Hx Arthritis: Yes Hx Falls: No Hx Spinal Stenosis: Yes - GASTROINTESTINAL Hx Gastrointestinal Disorders: No - GENITOURINARY/GYNECOLOGICAL Hx Genitourinary Disorders: No - PSYCHIATRIC Hx Substance Use: No - SURGICAL HISTORY Hx Surgeries: Yes Hx Herniorrhaphy: Yes - ANESTHESIA Hx Anesthesia: No Meds Allergies/Adverse Reactions: Allergies Allergy/AdvReac Type Severity Reaction Status Date / Time penicillin G Allergy SWELLING Verified 03/26/18 00:19 - Medications Medications: Current Medications Heparin Sodium (Porcine) (Heparin) 5,000 units SC Q8 [facility] PRN Reason: Protocol Last Admin: 03/26/18 05:58 Dose: Not Given Sodium Bicarbonate 50 meq/ (Sodium Chloride) 1,050 mls @ 100 mls/hr IV .[id number] [facility] Last Admin: 03/26/18 03:17 Dose: 100 mls/hr Sodium Chloride (Sodium Chloride 0.9%) 1,000 mls @ 150 mls/hr IV .Q6H40M [facility] Last Admin: 05/08/18 05:58 Dose: 150 mls/hr Aztreonam (Azactam 1 Gm) 100 mls @ 100 mls/hr IVPB Q8 [facility] PRN Reason: Protocol Stop: 04/02/18 14:01 Metronidazole (Flagyl) 500 mg in 100 mls @ 100 mls/hr IVPB Q8 [facility] PRN Reason: Protocol Pantoprazole Sodium (Protonix Inj) 40 mg IVP Q12 [facility] Physical Exam - Constitutional Appears: Other (ill-appearing) - Head Exam Head Exam: NORMAL INSPECTION - ENT Exam ENT Exam: Mucous Membranes Moist - Neck Exam Neck exam: Negative for: Meningismus - Respiratory Exam Respiratory Exam: Decreased Breath Sounds. absent: Rales - Cardiovascular Exam Cardiovascular Exam: +S1, +S2 - GI/Abdominal Exam GI & Abdominal Exam: Soft, Tenderness (lower quadrants). absent: Distended, Rebound, Rigid Results - Vital Signs Recent Vital Signs: Last Vital Signs Temp 98.7 F 03/26/18 06:01 Pulse 70 03/26/18 06:01 Resp 18 03/26/18 06:01 BP 152/84 H 03/26/18 06:01 Pulse Ox 100 03/26/18 02:35 - Labs Result Diagrams: 03/26/18 08:00 03/26/18 08:00 Assessment & Plan - Assessment and Plan (Free Text) Plan: Assessment consider enterocolitis spinal stenosis systemic lupus erythematosus HTN asthma Plan Started the patient on Azactam and Flagyl and will give a dose of IV Vancomycin pending blood cx, stool cx, fecal leukocytes follow up GI evaluation will monitor clinical response
[2018-03-26] MEDS: Aztreonam 1 Gm in NS 100mL 100 ML IVPB SCH ×2 (14:24→21:18)
[2018-03-26 14:28] LABS: BARBITURATES, UR NEGATIVE (NEGATIVE); BENZODIAZEPINES, UR NEGATIVE (NEGATIVE); OPIATES, UR NEGATIVE (NEGATIVE); PHENCYCLIDINE, UR NEGATIVE (NEGATIVE)
[2018-03-26 16:11] LABS: BLOOD UREA NITROGEN 4 mg/dL (7-21); CALCIUM 9.1 mg/dL (8.4-10.5); GFR AFRICAN-AMERICAN > 60; GFR NON-AFRICAN AMERICAN > 60
[2018-03-26] MEDS ORDERED: Sodium Chloride 0.9% 1,000 ML IV SCH (21:12)
[2018-03-27] MEDS: metroNIDAZOLE IV 500 mg/100 ml 500 MG/100 ML BAG IVPB SCH ×3 (06:04→22:57)
[2018-03-27] MEDS: Aztreonam 1 Gm in NS 100mL 100 ML IVPB SCH ×2 (06:04→17:05)
[2018-03-27 06:45] LABS: HEMOGLOBIN 8.2 g/dL (12.0-16.0); MEAN CELL VOLUME 80.3 fl (80.0-105.0); MEAN CORPUSCULAR HEMOGLOBIN 25.7 pg (25.0-35.0); MEAN PLATELET VOLUME 8.9 fl (7.0-11.0); RBC 3.19 10^6/uL (3.5-6.1); RED CELL DISTRIBUTION WIDTH 18.3 % (11.5-14.5); WHITE BLOOD COUNT 5.8 10^3/ul (4.5-11.0)
[2018-03-27 07:12] LABS: ALB/GLOB RATIO 1.4 (1.1-1.8); ALBUMIN 3.7 g/dL (3.0-4.8); ALT/SGPT 43 U/L (7-56); AST/SGOT 53 U/L (14-36); BLOOD UREA NITROGEN 4 mg/dL (7-21); CALCIUM 8.6 mg/dL (8.4-10.5); GFR AFRICAN-AMERICAN > 60; GFR NON-AFRICAN AMERICAN > 60
[2018-03-27 07:39] LABS: IRON 65 ug/dL (45-180)
[2018-03-27 07:48] LABS: % IRON SATURATION 19 % (20-55); TOTAL IRON BINDING CAPACITY 345 ug/dL (265-497)
[2018-03-27] MEDS ORDERED: Potassium Chloride 20 mEq ER Tab PO ONE ×2 (09:00→14:00)
[2018-03-27] MEDS ORDERED: Potassium Chloride 20 mEq ER Tab PO STA (09:04)
--- NOTE | 2018-03-27 11:40 | CP.PCM.PN ---
Subjective - Date & Time of Evaluation Date of Evaluation: 03/27/18 Time of Evaluation: 10:05 - Subjective Subjective: Patient is less nauseated and tolerating liquid diet so far, no vomiting, no diarrhea, no fevers. No abdominal pain currently. Objective - Vital Signs/Intake and Output Vital Signs (last 24 hours): Temp Pulse Resp BP Pulse Ox 98.5 F 76 18 115/65 99 03/27/18 06:00 03/27/18 06:00 03/27/18 06:00 03/27/18 06:00 03/26/18 23:43 Intake and Output: 03/27/18 03/27/18 06:59 18:59 Intake Total 1300 0 Output Total 200 Balance 1300 -200 - Medications Medications: Current Medications Acetaminophen (Tylenol 325mg Tab) 650 mg PO Q4H PRN PRN Reason: Headache Amlodipine Besylate (Norvasc) 5 mg PO DAILY [facility] Last Admin: 03/26/18 11:57 Dose: 5 mg Clonidine HCl (Catapres) 0.1 mg PO Q6H PRN PRN Reason: Symptoms of alcohol withdrawl Heparin Sodium (Porcine) (Heparin) 5,000 units SC Q8 [facility] PRN Reason: Protocol Last Admin: 03/27/18 06:03 Dose: 5,000 units Sodium Bicarbonate 50 meq/ (Sodium Chloride) 1,050 mls @ 100 mls/hr IV .[id number] [facility] Last Admin: 03/27/18 01:33 Dose: 100 mls/hr Aztreonam (Azactam 1 Gm) 100 mls @ 100 mls/hr IVPB Q8 [facility] PRN Reason: Protocol Stop: 04/02/18 14:01 Last Admin: 03/27/18 06:04 Dose: 100 mls/hr Metronidazole (Flagyl) 500 mg in 100 mls @ 100 mls/hr IVPB Q8 [facility] PRN Reason: Protocol Last Admin: 03/27/18 06:04 Dose: 100 mls/hr Lorazepam (Ativan) 2 mg IVP Q3H PRN; Protocol PRN Reason: Symptoms of alcohol withdrawl Lorazepam (Ativan) 1 mg IVP Q6H [facility] PRN Reason: Protocol Last Admin: 03/27/18 06:03 Dose: 1 mg Ondansetron HCl (Zofran Inj) 4 mg IVP Q4H PRN PRN Reason: Nausea/Vomiting Pantoprazole Sodium (Protonix Inj) 40 mg IVP Q12 [facility] Last Admin: 03/26/18 21:18 Dose: 40 mg Potassium Chloride (K-Dur 20 Meq Er Tab) 40 meq PO ONCE ONE Stop: 03/27/18 14:01 - Labs Labs: 03/27/18 06:00 03/27/18 06:00 APTT 28.9 Seconds (25.1-36.5) 03/27/18 06:00 - Constitutional Appears: Chronically Ill - Head Exam Head Exam: NORMAL INSPECTION - ENT Exam ENT Exam: Mucous Membranes Moist - Neck Exam Neck Exam: absent: Lymphadenopathy, Meningismus - Respiratory Exam Respiratory Exam: Decreased Breath Sounds. absent: Rales - Cardiovascular Exam Cardiovascular Exam: +S1, +S2 - GI/Abdominal Exam GI & Abdominal Exam: Soft. absent: Tenderness Assessment and Plan - Assessment and Plan (Free Text) Plan: Assessment consider acute enterocolitis, slowly improving spinal stenosis systemic lupus erythematosus HTN asthma Plan continue Azactam and Flagyl day 2; blood cx are negative, follow up stool cx, fecal leukocytes monitor advancement of diet will continue to monitor clinical response
--- NOTE | 2018-03-27 12:47 | CP.PCM.PN ---
<Chantel Henley - Last Filed: 03/27/18 17:28> Subjective - Date & Time of Evaluation Date of Evaluation: 03/27/18 Time of Evaluation: 12:45 - Subjective Subjective: IM progress note for Dr. Juan Alberto Henley, PGY-1 Pt S & E at bedside at 1045 Pt reports some nausea, one episode of emesis at 1am. Otherwise tolerating liquids currently. Continues with some RLQ abdominal pain, chills & diaphoresis overnight, Headache is improved. Denies chest pain, SOB, diarrhea. Has not had a BM since admission, but also has not really eaten since before admission. Objective - Vital Signs/Intake and Output Vital Signs (last 24 hours): Temp Pulse Resp BP Pulse Ox 98.6 F 77 18 115/79 99 03/27/18 12:00 03/27/18 12:00 03/27/18 12:00 03/27/18 12:00 03/26/18 23:43 Intake and Output: 03/27/18 03/27/18 06:59 18:59 Intake Total 1300 0 Output Total 200 Balance 1300 -200 - Medications Medications: Current Medications Acetaminophen (Tylenol 325mg Tab) 650 mg PO Q4H PRN PRN Reason: Headache Amlodipine Besylate (Norvasc) 5 mg PO DAILY [facility] Last Admin: 03/27/18 10:30 Dose: 5 mg Clonidine HCl (Catapres) 0.1 mg PO Q6H PRN PRN Reason: Symptoms of alcohol withdrawl Heparin Sodium (Porcine) (Heparin) 5,000 units SC Q8 [facility] PRN Reason: Protocol Last Admin: 03/27/18 06:03 Dose: 5,000 units Sodium Bicarbonate 50 meq/ (Sodium Chloride) 1,050 mls @ 100 mls/hr IV .[id number] [facility] Last Admin: 03/27/18 10:30 Dose: 100 mls/hr Aztreonam (Azactam 1 Gm) 100 mls @ 100 mls/hr IVPB Q8 [facility] PRN Reason: Protocol Stop: 04/02/18 14:01 Last Admin: 03/27/18 06:04 Dose: 100 mls/hr Metronidazole (Flagyl) 500 mg in 100 mls @ 100 mls/hr IVPB Q8 [facility] PRN Reason: Protocol Last Admin: 03/27/18 06:04 Dose: 100 mls/hr Lorazepam (Ativan) 2 mg IVP Q3H PRN; Protocol PRN Reason: Symptoms of alcohol withdrawl Lorazepam (Ativan) 0.5 mg IVP Q6H [facility] PRN Reason: Protocol Ondansetron HCl (Zofran Inj) 4 mg IVP Q4H PRN PRN Reason: Nausea/Vomiting Last Admin: 03/27/18 10:30 Dose: 4 mg Pantoprazole Sodium (Protonix Inj) 40 mg IVP Q12 [facility] Last Admin: 03/27/18 10:30 Dose: 40 mg - Labs Labs: 03/27/18 06:00 03/27/18 06:00 APTT 28.9 Seconds (25.1-36.5) 03/27/18 06:00 - Constitutional Appears: Non-toxic, No Acute Distress - Head Exam Head Exam: ATRAUMATIC, NORMAL INSPECTION, NORMOCEPHALIC - Eye Exam Eye Exam: EOMI, Normal appearance - ENT Exam ENT Exam: Mucous Membranes Moist, Normal Exam - Neck Exam Neck Exam: Full ROM, Normal Inspection - Respiratory Exam Respiratory Exam: Clear to Ausculation Bilateral, NORMAL BREATHING PATTERN. absent: Rales, Rhonchi, Wheezes, Respiratory Distress - Cardiovascular Exam Cardiovascular Exam: REGULAR RHYTHM, +S1, +S2 - GI/Abdominal Exam GI & Abdominal Exam: Soft, Tenderness (RLQ, mild), Normal Bowel Sounds. absent : Distended, Firm, Guarding - Extremities Exam Extremities Exam: Normal Inspection - Neurological Exam Neurological Exam: Alert, Awake, CN II-XII Intact, Oriented x3 - Psychiatric Exam Psychiatric exam: Normal Affect, Normal Mood - Skin Skin Exam: Dry, Intact, Normal Color, Warm Assessment and Plan - Assessment and Plan (Free Text) Assessment: 47F w/PMH sig for spinal stenosis, asthma, HTN, SLE admitted for intractable nausea and vomiting x 3 days resulting in high anion gap metabolic acidosis - resolving Plan: AG metabolic Acidosis- resolving AG now 13 Will consider discontinuing bicarb drip Acetaminophen <10 -WNL ETOH <10 - WNL Salicylate <1 - WNL UDS pos for cannabinoids A1c 5.4- WNL Montior Gastroenteritis vs. Colitis vs withdrawal Cont Aztreonam Cont Flagyl Zofran PRN On FLD Advance diet as tolerate Cont CIWA protocol Seizure precautions Ativan dosage decreased from 1mg Q6H to 0.5mg Q6H Cont Ativan PRN Clonidine PRN ID following- Cont Azactam & Flagyl (day 2), blood neg x 24H, FU fecal leuks HIV neg Headache Tylenol Monitor HTN BP 152/84 Monitor Cont home med- Norvasc 2.5mg daily History of lupus Cont home med- plaquenil Hx gastritis Avoid NSAIDS Anemia in setting of menoorrhagia Hgb 8.2 from 9.7 FU H/H at 2pm Ferritin 20.7 Will consider Fe vs. pRBCs if required Headache Tylenol PRN Hypokalemia 3.3 Replaced Monitor GI/DVT ppx Heparin Protonix DW attending All home medications verified via [facility] Lory, PGY-1 <Sandra Mays - Last Filed: 03/27/18 17:46> Objective - Vital Signs/Intake and Output Vital Signs (last 24 hours): Temp Pulse Resp BP Pulse Ox 98.1 F 109 H 19 145/75 99 03/27/18 17:42 03/27/18 17:42 03/27/18 17:42 03/27/18 17:42 03/26/18 23:43 Intake and Output: 03/27/18 03/27/18 06:59 18:59 Intake Total 1300 0 Output Total 200 Balance 1300 -200 - Medications Medications: Current Medications Acetaminophen (Tylenol 325mg Tab) 650 mg PO Q4H PRN PRN Reason: Headache Amlodipine Besylate (Norvasc) 2.5 mg PO DAILY [facility] Clonidine HCl (Catapres) 0.1 mg PO Q6H PRN PRN Reason: Symptoms of alcohol withdrawl Heparin Sodium (Porcine) (Heparin) 5,000 units SC Q8 [facility] PRN Reason: Protocol Last Admin: 03/27/18 14:56 Dose: 5,000 units Hydroxychloroquine Sulfate (Plaquenil) 200 mg PO DAILY [facility] PRN Reason: Protocol Aztreonam (Azactam 1 Gm) 100 mls @ 100 mls/hr IVPB Q8 [facility] PRN Reason: Protocol Stop: 04/02/18 14:01 Last Admin: 03/27/18 17:05 Dose: 100 mls/hr Metronidazole (Flagyl) 500 mg in 100 mls @ 100 mls/hr IVPB Q8 [facility] PRN Reason: Protocol Last Admin: 03/27/18 14:56 Dose: 100 mls/hr Lorazepam (Ativan) 0.5 mg IVP Q6H [facility] PRN Reason: Protocol Last Admin: 03/27/18 14:56 Dose: 0.5 mg Lorazepam (Ativan) 1 mg IVP Q3H PRN; Protocol PRN Reason: Symptoms of alcohol withdrawl Ondansetron HCl (Zofran Inj) 4 mg IVP Q4H PRN PRN Reason: Nausea/Vomiting Last Admin: 03/27/18 10:30 Dose: 4 mg Pantoprazole Sodium (Protonix Inj) 40 mg IVP Q12 [facility] Last Admin: 03/27/18 10:30 Dose: 40 mg - Labs Labs: 03/27/18 13:55 03/27/18 06:00 APTT 28.9 Seconds (25.1-36.5) 03/27/18 06:00 Attending/Attestation - Attestation I have personally seen and examined this patient.: Yes I have fully participated in the care of the patient.: Yes I have reviewed all pertinent clinical information, including history, physical exam and plan: Yes Notes (Text): 03/27/18 17:43 47 year old female with past medical history of asthma, hypertension and SLE who presented with nausea and vomiting x 3 days. She was found to have anion gap acidosis and possible enteritis on CT. Continue with antibiotics as per ID. Her acidosis have improved on bicarb. Acetaminophen, alcohol and salicylate level have been negative. She is on tapering ativan for alcohol withdrawal symptoms. Will begin to advance diet as tolerated. PT evaluation is requested. Anemia noted; likely secondary to dilutional component as well have heavy menses. Will continue to monitor closely and transfuse as needed. Sandra Mays MD Hospitalist.
[2018-03-27 14:10] LABS: HEMOGLOBIN 8.4 g/dL (12.0-16.0)
[2018-03-28] MEDS: Aztreonam 1 Gm in NS 100mL 100 ML IVPB SCH ×2 (00:29→06:41)
[2018-03-28] MEDS: metroNIDAZOLE IV 500 mg/100 ml 500 MG/100 ML BAG IVPB SCH (05:23)
[2018-03-28 06:35] LABS: HEMOGLOBIN 8.4 g/dL (12.0-16.0); MEAN CELL VOLUME 79.5 fl (80.0-105.0); MEAN CORPUSCULAR HEMOGLOBIN 26.1 pg (25.0-35.0); MEAN CORPUSCULAR HGB CONC 32.8 g/dl (31.0-37.0); MEAN PLATELET VOLUME 8.4 fl (7.0-11.0); RBC 3.22 10^6/uL (3.5-6.1); RED CELL DISTRIBUTION WIDTH 18.1 % (11.5-14.5); WHITE BLOOD COUNT 5.4 10^3/ul (4.5-11.0)
[2018-03-28 07:13] LABS: ALB/GLOB RATIO 1.3 (1.1-1.8); ALBUMIN 3.4 g/dL (3.0-4.8); ALT/SGPT 39 U/L (7-56); AST/SGOT 49 U/L (14-36); BLOOD UREA NITROGEN 3 mg/dL (7-21); CALCIUM 8.7 mg/dL (8.4-10.5); GFR AFRICAN-AMERICAN > 60; GFR NON-AFRICAN AMERICAN > 60
[2018-03-28 07:57] VITALS: RESP 18; O2SAT 99
[2018-03-28] MEDS ORDERED: Magnesium Sulfate 1 gm in D5W 1 GM/100 ML BAG IVPB ONE (09:54)
--- NOTE | 2018-03-28 12:07 | CP.PCM.PN ---
Subjective - Date & Time of Evaluation Date of Evaluation: 03/28/18 Time of Evaluation: 10:00 - Subjective Subjective: Comfortable, tolerating regular diet, no fevers, no abdominal pain, nausea has subsided. Objective - Vital Signs/Intake and Output Vital Signs (last 24 hours): Temp Pulse Resp BP Pulse Ox 100.3 F H 65 20 116/74 98 03/28/18 00:01 03/28/18 00:01 03/28/18 00:01 03/28/18 00:01 03/28/18 00:01 Intake and Output: 03/27/18 03/28/18 18:59 06:59 Intake Total 0 480 Output Total 200 Balance -200 480 - Medications Medications: Current Medications Acetaminophen (Tylenol 325mg Tab) 650 mg PO Q4H PRN PRN Reason: Headache Amlodipine Besylate (Norvasc) 2.5 mg PO DAILY RODNEY Clonidine HCl (Catapres) 0.1 mg PO Q6H PRN PRN Reason: Symptoms of alcohol withdrawl Heparin Sodium (Porcine) (Heparin) 5,000 units SC Q8 RODNEY PRN Reason: Protocol Last Admin: 03/27/18 22:52 Dose: 5,000 units Hydroxychloroquine Sulfate (Plaquenil) 200 mg PO DAILY RODNEY PRN Reason: Protocol Last Admin: 03/27/18 17:40 Dose: 200 mg Aztreonam (Azactam 1 Gm) 100 mls @ 100 mls/hr IVPB Q8 RODNEY PRN Reason: Protocol Stop: 04/02/18 14:01 Last Admin: 03/28/18 00:29 Dose: 100 mls/hr Metronidazole (Flagyl) 500 mg in 100 mls @ 100 mls/hr IVPB Q8 RODNEY PRN Reason: Protocol Last Admin: 03/28/18 05:23 Dose: 100 mls/hr Lorazepam (Ativan) 0.5 mg IVP Q6H RODNEY PRN Reason: Protocol Last Admin: 03/28/18 00:30 Dose: 0.5 mg Lorazepam (Ativan) 1 mg IVP Q3H PRN; Protocol PRN Reason: Symptoms of alcohol withdrawl Ondansetron HCl (Zofran Inj) 4 mg IVP Q4H PRN PRN Reason: Nausea/Vomiting Last Admin: 03/27/18 17:58 Dose: 4 mg Pantoprazole Sodium (Protonix Inj) 40 mg IVP Q12 RODNEY Last Admin: 03/27/18 22:54 Dose: 40 mg - Labs Labs: 03/27/18 13:55 03/27/18 06:00 APTT 28.9 Seconds (25.1-36.5) 03/27/18 06:00 - Constitutional Appears: Chronically Ill - Head Exam Head Exam: NORMAL INSPECTION - ENT Exam ENT Exam: Mucous Membranes Moist - Neck Exam Neck Exam: absent: Meningismus - Respiratory Exam Respiratory Exam: Decreased Breath Sounds - Cardiovascular Exam Cardiovascular Exam: +S1, +S2 - GI/Abdominal Exam GI & Abdominal Exam: Soft. absent: Tenderness Assessment and Plan - Assessment and Plan (Free Text) Plan: Assessment consider acute enterocolitis, clinically improving spinal stenosis systemic lupus erythematosus HTN asthma Plan continue Azactam and Flagyl day 3; blood cx are negative, patient has no diarrhea patient now on regular diet QTc on EKG is 465 ms (<500 ms) - when ready for discharge, can be switched to PO Ciprofloxacin and Flagyl for another 4-5 days
[2018-03-28 12:18] VITALS: BP 127/84; PULSE 68; TEMP 98.8
--- NOTE | 2018-03-28 14:20 | CP.PCM.DIS ---
<Bijan Norris - Last Filed: 03/28/18 14:11> Provider - Provider Date of Admission: 03/26/18 04:25 Attending physician: Sandra Mays MD Primary care physician: Elise Bradley Consults: LING Forrester Time Spent in preparation of Discharge (in minutes): 50 Hospital Course - Lab Results Lab Results: Most Recent Lab Values WBC 5.4 10^3/ul (4.5-11.0) 03/28/18 05:30 RBC 3.22 10^6/uL (3.5-6.1) L 03/28/18 05:30 Hgb 8.4 g/dL (12.0-16.0) L 03/28/18 05:30 Hct 25.6 % (36.0-48.0) L 03/28/18 05:30 MCV 79.5 fl (80.0-105.0) L 03/28/18 05:30 MCH 26.1 pg (25.0-35.0) 03/28/18 05:30 MCHC 32.8 g/dl (31.0-37.0) 03/28/18 05:30 RDW 18.1 % (11.5-14.5) H 03/28/18 05:30 Plt Count 386 10^3/uL (120.0-450.0) 03/28/18 05:30 MPV 8.4 fl (7.0-11.0) 03/28/18 05:30 Gran % 86.1 % (50.0-68.0) H 03/26/18 08:00 Lymph % (Auto) 10.1 % (22.0-35.0) L 03/26/18 08:00 [place] % (Auto) 3.6 % (1.0-6.0) 03/26/18 08:00 Eos % (Auto) 0.0 % (1.5-5.0) L 03/26/18 08:00 Baso % (Auto) 0.2 % (0.0-3.0) 03/26/18 08:00 Gran # 5.71 (1.4-6.5) 03/26/18 08:00 Lymph # (Auto) 0.7 (1.2-3.4) L 03/26/18 08:00 [place] # (Auto) 0.2 (0.1-0.6) 03/26/18 08:00 Eos # (Auto) 0.0 (0.0-0.7) 03/26/18 08:00 Baso # (Auto) 0.01 K/mm3 (0.0-2.0) 03/26/18 08:00 APTT 28.9 Seconds (25.1-36.5) 03/27/18 06:00 pCO2 26 mm/Hg (35-45) L 03/26/18 02:50 pO2 112.0 mm/Hg (80-100) H 03/26/18 02:50 HCO3 10.2 mmol/L (21-28) L 03/26/18 02:50 ABG pH 7.20 (7.35-7.45) L 03/26/18 02:50 ABG Total CO2 11.0 mmol.L (22-28) L 03/26/18 02:50 ABG O2 Saturation 98.9 % (95-98) H 03/26/18 02:50 ABG Base Excess -16.2 mmol/L (-2.0-3.0) L 03/26/18 02:50 ABG Potassium 4.2 mmol/L (3.6-5.2) 03/26/18 02:50 Sodium 137.0 mmol/L (132-148) 03/26/18 02:50 Chloride 110.0 mmol/L (98-107) H 03/26/18 02:50 Glucose 122 mg/dl (65-105) H 03/26/18 02:50 Lactate 0.7 mmol/L (0.7-2.1) 03/26/18 02:50 FiO2 21.0 % 03/26/18 02:50 Sodium 141 mmol/L (132-148) 03/28/18 05:30 Potassium 3.9 mmol/L (3.6-5.0) 03/28/18 05:30 Chloride 109 mmol/L (98-107) H 03/28/18 05:30 Carbon Dioxide 23 mmol/L (21-33) 03/28/18 05:30 Anion Gap 14 (10-20) 03/28/18 05:30 BUN 3 mg/dL (7-21) L 03/28/18 05:30 Creatinine 0.4 mg/dl (0.7-1.2) L 03/28/18 05:30 Est GFR ( Amer) > 60 03/28/18 05:30 Est GFR (Non-Af Amer) > 60 03/28/18 05:30 POC Glucose (mg/dL) 119 mg/dL (65-110) H 03/26/18 01:31 Random Glucose 90 mg/dL (70-110) 03/28/18 05:30 Hemoglobin A1c 5.4 % (4.2-6.5) 03/26/18 06:00 Calcium 8.7 mg/dL (8.4-10.5) 03/28/18 05:30 Phosphorus 3.9 mg/dL (2.5-4.5) 03/26/18 08:00 Magnesium 1.6 mg/dL (1.7-2.2) L 03/28/18 05:30 Iron 65 ug/dL (45-180) 03/27/18 06:30 TIBC 345 ug/dL (265-497) 03/27/18 06:30 % Saturation 19 % (20-55) L 03/27/18 06:30 Ferritin 20.7 ng/mL 03/27/18 06:30 Total Bilirubin 0.3 mg/dL (0.2-1.3) 03/28/18 05:30 AST 49 U/L (14-36) H 03/28/18 05:30 ALT 39 U/L (7-56) 03/28/18 05:30 Alkaline Phosphatase 47 U/L (38-126) 03/28/18 05:30 Total Protein 6.1 g/dL (5.8-8.3) 03/28/18 05:30 Albumin 3.4 g/dL (3.0-4.8) 03/28/18 05:30 Globulin 2.6 gm/dL 03/28/18 05:30 Albumin/Globulin Ratio 1.3 (1.1-1.8) 03/28/18 05:30 Amylase 136 U/L (35-125) H 03/26/18 01:09 Lipase 55 U/L (23-300) 03/26/18 01:09 Arterial Blood Potassium 4.2 mmol/L (3.6-5.2) 03/26/18 02:50 Urine Color Light red (YELLOW) 03/26/18 01:09 Urine Appearance Sl cloudy (CLEAR) 03/26/18 01:09 Urine pH 6.0 (4.7-8.0) 03/26/18 01:09 Ur Specific [place] >= 1.030 (1.005-1.035) 03/26/18 01:09 Urine Protein 100 mg/dL (<30 mg/dL) H 03/26/18 01:09 Urine Glucose (UA) Negative mg/dL (NEGATIVE) 03/26/18 01:09 Urine Ketones >=80 mg/dL (NEGATIVE) 03/26/18 01:09 Urine Blood Large (NEGATIVE) H 03/26/18 01:09 Urine Nitrate Negative (NEGATIVE) 03/26/18 01:09 Urine Bilirubin Negative (NEGATIVE) 03/26/18 01:09 Urine Urobilinogen 0.2 E.U./dL (<1 E.U./dL) 03/26/18 01:09 Ur Leukocyte Esterase Negative Rachid/uL (NEGATIVE) 03/26/18 01:09 Urine RBC 20 - 25 /hpf (0-2) 03/26/18 01:09 Urine WBC 0 - 2 /hpf (0-6) 03/26/18 01:09 Ur Epithelial Cells 0 - 2 /hpf (0-5) 03/26/18 01:09 Salicylates < 1 mg/dL (2.0-20.0) L 03/26/18 08:00 Urine Opiates Screen Negative (NEGATIVE) 03/26/18 13:53 Urine Methadone Screen Negative (NEGATIVE) 03/26/18 13:53 Acetaminophen < 10.0 ug/ml (10.0-20.0) L 03/26/18 08:00 Ur Barbiturates Screen Negative (NEGATIVE) 03/26/18 13:53 Ur Phencyclidine Scrn Negative (NEGATIVE) 03/26/18 13:53 Ur Amphetamines Screen Negative (NEGATIVE) 03/26/18 13:53 U Benzodiazepines Scrn Negative (NEGATIVE) 03/26/18 13:53 U Oth Cocaine Metabols Negative (NEGATIVE) 03/26/18 13:53 U Cannabinoids Screen Positive (NEGATIVE) H 03/26/18 13:53 Alcohol, Quantitative < 10 mg/dL (0-10) 03/26/18 08:00 HIV 1&2 Ag/Ab, 4th Gen Nonreactive (Nonreactive) 03/26/18 08:00 - Hospital Course Hospital Course: As per admission documentation, Patient is a 47 year old female with past medical history of spinal stenosis, asthma, HTN who presents with intractable nausea and vomiting for the past three days. Patient indicates poor oral intake and inability to tolerate food or liquids during this time. Patient reports prior to onset of symptoms she consumed chicken at a BBQ. She denies knowing if anyone else from meal is sick. She reports nausea and vomiting with some blood streaks present but denies juan hemeatemesis or clots in emesis. Patient reports diarrhea for the past 48 hours, indicateing soft stool with 5+ episodes each day. She reports feeling clammy, chills, sweats. Patient denies fever, chest pain, back pain, diarrhea, recent travel or sick contacts. Hospital Course ED course: VBG showing metabolic acidosis, one amp of bicarbonate, IV antibiotics, Abominal CT showing few prominent loops of small bowel with mild thickening of francisco enteritis vs. colitis, zofran and 2 Liters of fluids Patient was started on Aztreonam (due to penicillin allergy) and Flagyl for the gasteroenteritis vs. colitis, and placed on an NPO diet. She was started on a bicarb drip due to anion gap meabolic acidosis. She was restarted on home medication Norvasc for hypertension. Patient was also placed on CIWA protocol and placed on Ativan 0.5mg IVP q6h and never required a prn dose. Over the next couple of days, the patient was rehydrated with IV fluids and continued on IV antibiotics. Her symptoms improved and she was no longer vomiting and was advanced to a regular diet without becoming nauseous on the date of discharge. Her anion gap was closed on 03/27/18 and the bicarb drip was discontinued. Patient remained stable throughout her hospital stay without any incidents. She was discharged on 03/28/18 with the following instructions. Discharge instructions 1. Maintain on low fiber low fat diet for at least 2-4 weeks. May need to add miralax or colace to help bowel movement. 2. Follow up with primary care doctor in 1 week 3. Please take Ciprofloxacin 500mg every 12 hours for the next 5 days. 4. Please take Metronidazole 500mg every 8 hours for the next 5 days. 5. Avoid alcohol upon discharge as it is toxic to your health. It is especially important to avoid any alcohol while taking Metronidazole as it will cause you to become nauseous and vomit. 6. If you experience any new or worsening symptoms, please go directly to the nearest emergency room. 7. Take care and good luck. This is just a brief summary of the patient's hospital course. For full details of patient's hospital course, please see EMR. Discharge Exam - Head Exam Head Exam: NORMAL INSPECTION - Eye Exam Eye Exam: EOMI, Normal appearance Pupil Exam: NORMAL ACCOMODATION, PERRL - ENT Exam ENT Exam: Mucous Membranes Moist - Neck Exam Neck exam: Full Rom, Normal Inspection - Respiratory Exam Respiratory Exam: Clear to PA & Lateral, NORMAL BREATHING PATTERN, UNREMARKABLE. absent: Accessory Muscle Use, Rales, Rhonchi, Wheezes, Respiratory Distress - Cardiovascular Exam Cardiovascular Exam: REGULAR RHYTHM, +S1, +S2. absent: JVD - GI/Abdominal Exam GI & Abdominal Exam: Normal Bowel Sounds, Soft, Unremarkable. absent: Distended , Firm, Guarding, Rigid, Tenderness - Extremities Exam Extremities exam: normal inspection, pedal pulses present - Neurological Exam Neurological exam: Alert, CN II-XII Intact, Oriented x3 - Psychiatric Exam Psychiatric exam: Normal Affect, Normal Mood - Skin Skin Exam: Dry, Warm Discharge Plan - Discharge Medications Prescriptions: Ciprofloxacin [Cipro] 500 mg PO Q12H #10 tab metroNIDAZOLE [Flagyl] 500 mg PO Q8H #15 tab Ondansetron ODT [Zofran ODT] 4 mg PO Q8H #10 odt - Follow Up Plan Condition: STABLE Disposition: HOME/ ROUTINE Instructions: Ciprofloxacin (Systemic), Heart Healthy Diet, Hypokalemia (DC), Metronidazole (Systemic), Nausea and Vomiting, Adult (DC), Ondansetron Additional Instructions: 1. Maintain on low fiber low fat diet for at least 2-4 weeks. May need to add miralax or colace to help bowel movement. 2. Follow up with primary care doctor in 1 week 3. Please take Ciprofloxacin 500mg every 12 hours for the next 5 days. 4. Please take Metronidazole 500mg every 8 hours for the next 5 days. 5. Avoid alcohol upon discharge as it is toxic to your health. It is especially important to avoid any alcohol while taking Metronidazole as it will cause you to become nauseous and vomit. 6. If you experience any new or worsening symptoms, please go directly to the nearest emergency room. 7. Take care and good luck. Referrals: Kashmir Carey MD [Staff Provider] - Elise Bradley MD [Primary Care Provider] - Lion Forrester MD [Staff Provider] - <Sandra Mays - Last Filed: 03/28/18 15:10> Provider - Provider Date of Admission: 03/26/18 04:25 Attending physician: Sandra Mays MD Primary care physician: [facility] Course - Lab Results Lab Results: Most Recent Lab Values WBC 5.4 10^3/ul (4.5-11.0) 03/28/18 05:30 RBC 3.22 10^6/uL (3.5-6.1) L 03/28/18 05:30 Hgb 8.4 g/dL (12.0-16.0) L 03/28/18 05:30 Hct 25.6 % (36.0-48.0) L 03/28/18 05:30 MCV 79.5 fl (80.0-105.0) L 03/28/18 05:30 MCH 26.1 pg (25.0-35.0) 03/28/18 05:30 MCHC 32.8 g/dl (31.0-37.0) 03/28/18 05:30 RDW 18.1 % (11.5-14.5) H 03/28/18 05:30 Plt Count 386 10^3/uL (120.0-450.0) 03/28/18 05:30 MPV 8.4 fl (7.0-11.0) 03/28/18 05:30 Gran % 86.1 % (50.0-68.0) H 03/26/18 08:00 Lymph % (Auto) 10.1 % (22.0-35.0) L 03/26/18 08:00 [place] % (Auto) 3.6 % (1.0-6.0) 03/26/18 08:00 Eos % (Auto) 0.0 % (1.5-5.0) L 03/26/18 08:00 Baso % (Auto) 0.2 % (0.0-3.0) 03/26/18 08:00 Gran # 5.71 (1.4-6.5) 03/26/18 08:00 Lymph # (Auto) 0.7 (1.2-3.4) L 03/26/18 08:00 [place] # (Auto) 0.2 (0.1-0.6) 03/26/18 08:00 Eos # (Auto) 0.0 (0.0-0.7) 03/26/18 08:00 Baso # (Auto) 0.01 K/mm3 (0.0-2.0) 03/26/18 08:00 APTT 28.9 Seconds (25.1-36.5) 03/27/18 06:00 pCO2 26 mm/Hg (35-45) L 03/26/18 02:50 pO2 112.0 mm/Hg (80-100) H 03/26/18 02:50 HCO3 10.2 mmol/L (21-28) L 03/26/18 02:50 ABG pH 7.20 (7.35-7.45) L 03/26/18 02:50 ABG Total CO2 11.0 mmol.L (22-28) L 03/26/18 02:50 ABG O2 Saturation 98.9 % (95-98) H 03/26/18 02:50 ABG Base Excess -16.2 mmol/L (-2.0-3.0) L 03/26/18 02:50 ABG Potassium 4.2 mmol/L (3.6-5.2) 03/26/18 02:50 Sodium 137.0 mmol/L (132-148) 03/26/18 02:50 Chloride 110.0 mmol/L (98-107) H 03/26/18 02:50 Glucose 122 mg/dl (65-105) H 03/26/18 02:50 Lactate 0.7 mmol/L (0.7-2.1) 03/26/18 02:50 FiO2 21.0 % 03/26/18 02:50 Sodium 141 mmol/L (132-148) 03/28/18 05:30 Potassium 3.9 mmol/L (3.6-5.0) 03/28/18 05:30 Chloride 109 mmol/L (98-107) H 03/28/18 05:30 Carbon Dioxide 23 mmol/L (21-33) 03/28/18 05:30 Anion Gap 14 (10-20) 03/28/18 05:30 BUN 3 mg/dL (7-21) L 03/28/18 05:30 Creatinine 0.4 mg/dl (0.7-1.2) L 03/28/18 05:30 Est GFR ( Amer) > 60 03/28/18 05:30 Est GFR (Non-Af Amer) > 60 03/28/18 05:30 POC Glucose (mg/dL) 119 mg/dL (65-110) H 03/26/18 01:31 Random Glucose 90 mg/dL (70-110) 03/28/18 05:30 Hemoglobin A1c 5.4 % (4.2-6.5) 03/26/18 06:00 Calcium 8.7 mg/dL (8.4-10.5) 03/28/18 05:30 Phosphorus 3.9 mg/dL (2.5-4.5) 03/26/18 08:00 Magnesium 1.6 mg/dL (1.7-2.2) L 03/28/18 05:30 Iron 65 ug/dL (45-180) 03/27/18 06:30 TIBC 345 ug/dL (265-497) 03/27/18 06:30 % Saturation 19 % (20-55) L 03/27/18 06:30 Ferritin 20.7 ng/mL 03/27/18 06:30 Total Bilirubin 0.3 mg/dL (0.2-1.3) 03/28/18 05:30 AST 49 U/L (14-36) H 03/28/18 05:30 ALT 39 U/L (7-56) 03/28/18 05:30 Alkaline Phosphatase 47 U/L (38-126) 03/28/18 05:30 Total Protein 6.1 g/dL (5.8-8.3) 03/28/18 05:30 Albumin 3.4 g/dL (3.0-4.8) 03/28/18 05:30 Globulin 2.6 gm/dL 03/28/18 05:30 Albumin/Globulin Ratio 1.3 (1.1-1.8) 03/28/18 05:30 Amylase 136 U/L (35-125) H 03/26/18 01:09 Lipase 55 U/L (23-300) 03/26/18 01:09 Arterial Blood Potassium 4.2 mmol/L (3.6-5.2) 03/26/18 02:50 Urine Color Light red (YELLOW) 03/26/18 01:09 Urine Appearance Sl cloudy (CLEAR) 03/26/18 01:09 Urine pH 6.0 (4.7-8.0) 03/26/18 01:09 Ur Specific [place] >= 1.030 (1.005-1.035) 03/26/18 01:09 Urine Protein 100 mg/dL (<30 mg/dL) H 03/26/18 01:09 Urine Glucose (UA) Negative mg/dL (NEGATIVE) 03/26/18 01:09 Urine Ketones >=80 mg/dL (NEGATIVE) 03/26/18 01:09 Urine Blood Large (NEGATIVE) H 03/26/18 01:09 Urine Nitrate Negative (NEGATIVE) 03/26/18 01:09 Urine Bilirubin Negative (NEGATIVE) 03/26/18 01:09 Urine Urobilinogen 0.2 E.U./dL (<1 E.U./dL) 03/26/18 01:09 Ur Leukocyte Esterase Negative Rachid/uL (NEGATIVE) 03/26/18 01:09 Urine RBC 20 - 25 /hpf (0-2) 03/26/18 01:09 Urine WBC 0 - 2 /hpf (0-6) 03/26/18 01:09 Ur Epithelial Cells 0 - 2 /hpf (0-5) 03/26/18 01:09 Salicylates < 1 mg/dL (2.0-20.0) L 03/26/18 08:00 Urine Opiates Screen Negative (NEGATIVE) 03/26/18 13:53 Urine Methadone Screen Negative (NEGATIVE) 03/26/18 13:53 Acetaminophen < 10.0 ug/ml (10.0-20.0) L 03/26/18 08:00 Ur Barbiturates Screen Negative (NEGATIVE) 03/26/18 13:53 Ur Phencyclidine Scrn Negative (NEGATIVE) 03/26/18 13:53 Ur Amphetamines Screen Negative (NEGATIVE) 03/26/18 13:53 U Benzodiazepines Scrn Negative (NEGATIVE) 03/26/18 13:53 U Oth Cocaine Metabols Negative (NEGATIVE) 03/26/18 13:53 U Cannabinoids Screen Positive (NEGATIVE) H 03/26/18 13:53 Alcohol, Quantitative < 10 mg/dL (0-10) 03/26/18 08:00 HIV 1&2 Ag/Ab, 4th Gen Nonreactive (Nonreactive) 03/26/18 08:00 Attending/Attestation - Attestation I have personally seen and examined this patient.: Yes I have fully participated in the care of the patient.: Yes I have reviewed all pertinent clinical information, including history, physical exam and plan: Yes Notes (Text): 03/28/18 15:06 47 year old female with past medical history of asthma, hypertension and SLE who presented with nausea and vomiting x 3 days. She was found to have anion gap acidosis and possible enteritis on CT. She was started on iv fluids, bicarb drip and antibiotics. Her acidosis and symptoms improved. Acetaminophen , alcohol and salicylate level have been negative. Her symptoms improved and her diet was advanced as tolerated. She was noted to have anemia, likely multifactorial secondary to dilutional component as well have heavy menses. Her hemoglobin is stable today. Overall her symptoms have improved. She is discharged home today to follow up with her pmd. Follow up with auto service dispatcher. Counselled on alcohol abstinence, particularly while on flagyl. Counselled on risks of continued sustance abuse. Counselled on avoiding NSAIDs. Follow up with cargo and container inspector. Sandra Mays MD Hospitalist.
== END 2018-03-28 13:58 | disposition home or self-care (01) | DRG 392 ==
LOC: ED 23:48 → ERH 03-26 04:25 → 2RNO 03-26 05:48
PROVIDERS: ADMIT Hospitalist; ATTEND Internal Medicine
DX: K52.9 Noninfective gastroenteritis and colitis, unspecified (principal); E87.2 Acidosis; F10.239 Alcohol dependence with withdrawal, unspecified; I10 Essential (primary) hypertension; M32.9 Systemic lupus erythematosus, unspecified; M48.00 Spinal stenosis, site unspecified; D64.9 Anemia, unspecified; N92.0 Excessive and frequent menstruation with regular cycle; J45.909 Unspecified asthma, uncomplicated; Z88.0 Allergy status to penicillin

== ENCOUNTER 2019-01-27 22:27 | Inpatient (IN) | payer MEDICAID | END 2019-01-31 14:58 | disposition home or self-care (01) | LOC: ERH 01-28 01:50 → ED 22:27 → ERH 01-28 02:17 → 2RNO 01-29 11:58 → 2RSO 01-28 03:11 ==